=== PATIENT | female | born 1990 | race African-American/Black ===

== ENCOUNTER 2017-02-05 15:34 | Emergency (ER) | payer OTHER ==
[2017-02-05 16:22] LABS: BILIRUBIN NEGATIVE (NEGATIVE); BLOOD NEGATIVE Ery/uL (NEGATIVE); CLARITY CLEAR (CLEAR); COLOR YELLOW (YELLOW); GLUCOSE (U) NORMAL (NORMAL); KETONE (U) NEGATIVE (NEGATIVE); LEUKOCYTES NEGATIVE Leu/uL (NEGATIVE); NITRITE NEGATIVE (NEGATIVE); PROTEIN TRACE (LOW) mg/dL (NEGATIVE); SPECIFIC GRAVITY >=1.030 (1.001-1.030); UROBILINOGEN 0.2 mg/dL (0.2-1.0)
[2017-02-05 16:28] LABS: BACTERIA TRACE; MUCOUS MODERATE; SQUAMOUS EPITHELIAL CELLS RARE
[2017-02-05 18:07] LABS: BASOPHIL 0.1 % (0-2); EOSINOPHIL 0.4 % (0-5); HCT 41.9 % (37.0-47.0); HGB 14.1 g/dl (12.5-16.0); LYMPHOCYTE 8.7 % (15-48); MCH 28.2 pg (25.0-31.0); MCHC 33.7 g/dL (32.0-36.0); MCV 83.8 fL (78.0-100.0); MONOCYTE 6.5 % (0-12); MPV 9.7 fL (6.0-9.5); NEUTROPHIL 84.3 % (41-80); PLT 301 K/uL (150-400); RDW 15.7 % (11.5-14.0)
[2017-02-05 18:15] LABS: LACTIC ACID 1.1 mmol/L (0.5-2.2)
[2017-02-05 18:18] LABS: ALBUMIN 4.4 g/dL (3.5-5.0); BILIRUBIN - TOTAL 0.2 mg/dL (0.1-1.0); CREATININE 0.8 mg/dL (0.5-1.0); GLOBULIN (CALCULATION) 2.7 g/dL (2.2-4.2); POTASSIUM 3.6 mmol/L (3.5-5.1); TOTAL PROTEIN 7.1 g/dL (6.4-8.3)
== END 2017-02-05 19:41 | disposition home or self-care (01) ==
LOC: FER 15:34
PROVIDERS: Emergency Medicine; Nurse Practitioner Family
DX: N83.202 Unspecified ovarian cyst, left side (principal); B95.5 Unspecified streptococcus as the cause of diseases classified elsewhere; F17.210 Nicotine dependence, cigarettes, uncomplicated
CPT/HCPCS: 36415; 80053; 81001; 82150; 83605; 83690; 85025; 87450; J0561; J1170; J1885; Q9967

== ENCOUNTER 2017-05-02 16:11 | Emergency (ER) | payer OTHER ==
[2017-05-02 18:50] LABS: BILIRUBIN NEGATIVE (NEGATIVE); BLOOD NEGATIVE Ery/uL (NEGATIVE); CLARITY CLEAR (CLEAR); COLOR YELLOW (YELLOW); GLUCOSE (U) NORMAL (NORMAL); KETONE (U) TRACE mg/dL (NEGATIVE); LEUKOCYTES NEGATIVE Leu/uL (NEGATIVE); NITRITE POSITIVE (NEGATIVE); PROTEIN NEGATIVE (NEGATIVE); SPECIFIC GRAVITY 1.025 (1.001-1.030); pH 6.5 (5.0-9.0)
[2017-05-02 18:57] LABS: AMORPHOUS URATES CRYSTALS MODERATE; BACTERIA 3+
[2017-05-02 19:06] LABS: CREATININE 1.1 mg/dL (0.5-1.0); POTASSIUM 4.1 mmol/L (3.5-5.1)
[2017-05-02 19:16] LABS: BASOPHIL 0.2 % (0-2); EOSINOPHIL 0.4 % (0-5); HCT 42.6 % (37.0-47.0); HGB 14.3 g/dl (12.5-16.0); LYMPHOCYTE 22.8 % (15-48); MCH 28.5 pg (25.0-31.0); MCHC 33.6 g/dL (32.0-36.0); MCV 84.9 fL (78.0-100.0); MONOCYTE 9.6 % (0-12); MPV 10.2 fL (6.0-9.5); PLT 352 K/uL (150-400); RBC 5.02 M/uL (4.20-5.40); RDW 15.3 % (11.5-14.0); WBC 8.9 K/uL (4.0-10.5)
== END 2017-05-02 20:01 | disposition home or self-care (01) ==
LOC: FER 16:11
PROVIDERS: Nurse Practitioner
DX: N30.01 Acute cystitis with hematuria (principal); F17.210 Nicotine dependence, cigarettes, uncomplicated; Z88.0 Allergy status to penicillin
CPT/HCPCS: 36415; 76830; 80048; 81001; 85025; J1885

== ENCOUNTER 2022-01-23 16:28 | Emergency (ER) | payer OTHER ==
[~2022-01-23 16:28] MED LIST: BENTYL10 MG PO; NAPROXEN500 MG PO; VOLTAREN **OUT50 MG PO; ZOFRAN8 MG PO
[2022-01-23 18:37] LABS: BILIRUBIN NEGATIVE (NEGATIVE); BLOOD NEGATIVE Ery/uL (NEGATIVE); COLOR YELLOW (YELLOW); GLUCOSE (U) NORMAL (NORMAL); LEUKOCYTES NEGATIVE Leu/uL (NEGATIVE); NITRITE NEGATIVE (NEGATIVE); PROTEIN NEGATIVE (NEGATIVE); UROBILINOGEN 0.2 mg/dL (0.2-1.0)
[2022-01-23 18:46] LABS: BACTERIA TRACE; CLARITY SLIGHTLY HAZY (CLEAR); URINARY WBC RARE
[2022-01-23] MEDS ORDERED: MOTRIN600 MG PO (19:26)
== END 2022-01-23 19:34 | disposition home or self-care (01) ==
LOC: FER 16:28
PROVIDERS: Physician Assistant
DX: R07.89 Other chest pain (principal); F17.210 Nicotine dependence, cigarettes, uncomplicated; Z88.0 Allergy status to penicillin; Z88.1 Allergy status to other antibiotic agents
CPT/HCPCS: 71101; 81001

== ENCOUNTER 2022-08-07 17:47 | Emergency (ER) | payer OTHER ==
[~2022-08-07 17:47] MED LIST changes: +MOTRIN600 MG PO
[2022-08-07] MEDS ORDERED: EPIPEN0.3 MG/0.3 SC (21:10)
[2022-08-07] MEDS ORDERED: MEDROL 4MG DOSEP4 MG PO (21:10)
[2022-08-07] MEDS ORDERED: CLEOCIN300 MG PO (21:10)
== END 2022-08-07 21:19 | disposition home or self-care (01) ==
LOC: FER 17:47
DX: T63.441A Toxic effect of venom of bees, accidental (unintentional), initial encounter (principal); K04.7 Periapical abscess without sinus; F20.9 Schizophrenia, unspecified; Z88.0 Allergy status to penicillin
CPT/HCPCS: J1100; J1200; J7030